=== PATIENT | male | born 1965 | race Caucasian/White ===

== ENCOUNTER 2016-05-17 22:54 | Emergency (ER) | payer MEDICAID ==
[~2016-05-17] VITALS: Ht 180.3 cm; Wt 105.0 kg
[~2016-05-17 22:54] MED LIST: HYDR-3533 PO; NAPR500 PO
[2016-05-17 23:02] VITALS: BP 178/110; PULSE 83; RESP 16; TEMP 98; O2SAT 96
[2016-05-17 23:30] VITALS: BP_SYST 178; BP_SYST 203; BP_DIAS 110; BP_DIAS 118; PULSE 83; PULSE 91; RESP 16; RESP 18; O2SAT 96
[2016-05-17] MEDS ORDERED: traMADol HCL 50 MG TAB PO ONE (23:45)
[2016-05-17] MEDS ORDERED: PENICILLIN V POTASSIUM 500 MG TAB PO ONE (23:45)
[2016-05-17 23:54] VITALS: BP 222/114; PULSE 88; RESP 18; O2SAT 96
[2016-05-17] MEDS ORDERED: IBUP200C PO (23:58)
[2016-05-18] MEDS ORDERED: cloNIDine HCL 0.1 MG TAB PO ONE ×2 (00:30→01:00)
[2016-05-18] MEDS ORDERED: PENI500T PO (00:38)
[2016-05-18] MEDS ORDERED: TRAM50TA PO (00:38)
[2016-05-18] MEDS ORDERED: CLON0.1T PO (00:38)
[2016-05-18] MEDS ORDERED: AMLO5 PO (00:38)
--- NOTE | 2016-05-18 00:38 | PD ---
HPI Chief Complaint: Oral / Dental Pain or Problem Time Seen by Provider: 23:39 Travel History International Travel<30 days: No Contact w/Intl Traveler<30days: No Traveled to known affect area: No History of Present Illness HPI 50-year-old male presents to the emergency department for complaint of dental pain. Patient's had fractured tooth with partially exposed dentin after filling broke. Patient states that his pain is no longer responding to over-the -counter Orajel or ibuprofen. Patient has had no fever chills. Patient is not diabetic. Patient does have prior history of dyslipidemia and hypertension. Patient is noted to be hypertensive. Patient rates pain as severe. Patient's had no headache sudden onset worst of her headache thunderclap headache visual disturbance speech disturbance change in mentation neck pain chest pain palpitations referred neck jaw back shoulder arm pain shortness of breath sweats nausea vomiting upper or lower extremity numbness tingling or weakness or ataxia gait. Patient has been on blood pressure medication the past but has not taken the medication recently has not had insurance or primary care provider and therefore has not been on any medications for blood pressure control. Patient denies other concerns or complaints. Patient is a nonsmoker. [facility] Past Medical History Narrative Medical Hypertension dyslipidemia; no tobacco use; nursing notes reviewed Cardiovascular Problems: Yes (HTN) Patient Takes Glucophage: No Hypertension: Yes Tetanus Vaccination: < 5 Years Social History Alcohol Use: No Tobacco Use: No Substance Use: No Allergies-Medications (Allergen,Severity, Reaction): Coded Allergies: No Known Allergies (Unverified , 05/17/16) Reported Meds & Prescriptions Reported Meds & Active Scripts Active Tramadol (Tramadol HCl) 50 Mg Tab 50 Mg PO Q6H PRN Penicillin V Potassium 500 Mg Tab 500 Mg PO Q6H 7 Days Norvasc (Amlodipine Besylate) 5 Mg Tab 5 Mg PO DAILY Clonidine (Clonidine HCl) 0.1 Mg Tab 0.1 Mg PO Q12HR PRN Reported Ibuprofen 200 Mg Cap 200 Mg PO Q4H PRN Review of Systems Except as stated in HPI: all other systems reviewed are Neg General / Constitutional: No: Fever, Chills Eyes: No: Visual changes HENT: Positive: Dental Difficulties, No: Headaches, Neck Stiffness, Neck Pain Cardiovascular: No: Chest Pain or Discomfort, Palpitations, Diaphoresis, Syncope Respiratory: No: Shortness of Breath Gastrointestinal: No: Nausea, Vomiting Genitourinary: No: Flank Pain Musculoskeletal: No: Pain Skin: No Rash Neurologic: No: Weakness, Dizziness, Syncope, Focal Abnormalities, Coordination Problem, Ataxia, Headache, Change in Mentation, Slurred Speech, Paresthesia, Incontinence, Seizures, Sensory Disturbance Psychiatric: No: Anxiety Endocrine: No: Heat Intolerance Hematologic/Lymphatic: No: Easy Bruising Physical Exam Narrative GENERAL: Well-developed well-nourished male in no acute distress no respiratory distress; hypertensive SKIN: Warm and dry. HEAD: Normocephalic. EYES: No scleral icterus. No injection or drainage. ENT: Mucous membranes moist airway is patent multiple dental caries with amalgam in place and the #30 tooth with broken amalgam NECK: Supple, trachea midline. No JVD or lymphadenopathy. CARDIOVASCULAR: Regular rate and rhythm without murmurs, gallops, or rubs. RESPIRATORY: Breath sounds equal bilaterally. No accessory muscle use. GASTROINTESTINAL: Abdomen soft, non-tender, nondistended. MUSCULOSKELETAL: No cyanosis, or edema. BACK: Nontender without obvious deformity. No CVA tenderness. Data Data Last Documented VS Vital Signs Date Time Temp Pulse Resp B/P Pulse Ox O2 Delivery O2 Flow Rate FiO2 05/18/16 02:12 95 05/18/16 01:42 90 16 188/105 Room Air 05/17/16 23:02 98.0 Orders Penicillin V Potassium (Veetids) (05/17/16 23:45) Tramadol (Ultram) (05/17/16 23:45) Clonidine (Catapres) (05/18/16 00:30) Clonidine (Catapres) (05/18/16 01:00) [facility] Medical Decision Making Medical Screen Exam Complete: Yes Emergency Medical Condition: Yes Medical Record Reviewed: Yes Differential Diagnosis Dentalgia, dental abscess, uncontrolled hypertension Narrative Course Patient with multiple blood pressures checked and administered tramadol for dental pain along with first dose of oral antibiotic; due to ongoing hypertension clonidine 0.1 mg administered--patient reports he has been on this medication the past without adverse reaction Patient encouraged along with spouse at bedside to make appointment with primary care provider and to start management of blood pressure with antihypertensive therapy. Patient provided prescription for clonidine to be taken on a as-needed basis as well as Norvasc 5 mg to be taken daily. Patient also given prescription for penicillin and tramadol and encouraged to follow up closely with dentist as patient will need possible crown versus extraction of the #30 tooth. Patient is aware of need for close management of his blood pressure. Additional BP medication administered At 1:49 AM blood pressure is 182/105 and have discussed with patient recommendation to more thoroughly address and manage his blood pressure. Discussed with patient starting IV and giving him IV antihypertensive medication ; patient reports he is ready to leave and doesn't want to stay longer for BP medications --discussed with patient risk for stroke heart attack and -- patient refuses further management ---will sign AMA AMA: The risks of leaving against medical advice without further evaluation treatment were discussed with the patient. These risks include cardiac dysfunction, cardiac dysrhythmia, possible heart attack, possible stroke or . The patient indicated understanding of these risks and appeared to have the capacity to make this decision. Diagnosis Primary Impression: Dentalgia Additional Impressions: Hypertension Qualified Code: I10 - Essential hypertension Poorly controlled blood pressure Left against medical advice Referrals: Dentist call for appointment Primary Care Physician call for appointment Patient Instructions: General Instructions Additional Instructions: AMA Med/Other Pt SpecificInfo: Prescription(s) given Scripts Tramadol 50 Mg Tab50 Mg PO Q6H PRN (PAIN) #12 TAB Ref 0 Prov:Romina Muhammad MD 05/18/16 Penicillin V Potassium 500 Mg Zyg000 Mg PO Q6H 7 Days Ref 0 Prov:Romina Muhammad MD 05/18/16 Amlodipine (Norvasc)5 Mg Tab5 Mg PO DAILY #30 TAB Ref 0 Prov:Romina Muhammad MD 05/18/16 Clonidine 0.1 Mg Tab0.1 Mg PO Q12HR PRN (SBP>180, DBP>95) #7 TAB Ref 0 Prov:Romina Muhammad MD 05/18/16 Disposition: 07 AGAINST MEDICAL ADVICE Condition: Stable Romina Muhammad MD May 18, 2016 00:38
[2016-05-18 00:59] VITALS: BP 219/122; PULSE 85; RESP 16; O2SAT 99
[2016-05-18 01:39] VITALS: BP 182/105; PULSE 84; RESP 16; O2SAT 95
[2016-05-18 01:42] VITALS: BP 188/105; PULSE 90; RESP 16; O2SAT 99
== END 2016-05-18 02:15 | disposition left against medical advice (07) ==
LOC: PHED 22:54
DX: K08.89 Other specified disorders of teeth and supporting structures (principal); I10 Essential (primary) hypertension; E78.5 Hyperlipidemia, unspecified; Z53.29 Procedure and treatment not carried out because of patient's decision for other reasons
CPT/HCPCS: 99282

== ENCOUNTER 2017-01-25 13:11 | Emergency (ER) | payer MEDICAID ==
[~2017-01-25] VITALS: Ht 180.3 cm; Wt 113.0 kg
[~2017-01-25 13:11] MED LIST changes: +AMLO5 PO; +CLON0.1T PO; -HYDR-3533 PO; +IBUP200C PO; -NAPR500 PO; +PENI500T PO; +TRAM50TA PO
[2017-01-25 13:55] VITALS: BP 180/88; PULSE 106; RESP 18; TEMP 98.2; O2SAT 95
[2017-01-25] MEDS ORDERED: AMOX500C PO (14:20)
[2017-01-25] MEDS ORDERED: CLINDAMYCIN 600 MG/DEX PREMIX 50 ML IV ONE (15:00)
[2017-01-25] MEDS ORDERED: KETOROLAC TROMETHAMINE 30 MG/ML (IVP) VIAL IV PUSH ONE (15:00)
[2017-01-25 15:15] LABS: AUTOMATED NEUTROPHIL # 7.1 TH/MM3 (1.8-7.7); BASOPHIL # 0.1 TH/MM3 (0-0.2); BASOPHIL % 1.1 % (0.0-2.0); EOSINOPHIL # 0.1 TH/MM3 (0-0.4); EOSINOPHIL % 0.8 % (0.0-4.0); HEMATOCRIT 43.6 % (39.0-51.0); HEMOGLOBIN 13.8 GM/DL (13.0-17.0); LYMPHOCYTE # 1.6 TH/MM3 (1.0-4.8); MEAN CELL VOLUME 90.7 FL (80.0-100.0); MEAN CORPUSCULAR HEMOGLOBIN 28.8 PG (27.0-34.0); MEAN CORPUSCULAR HGB CONC 31.7 % (32.0-36.0); MEAN PLATELET VOLUME 7.2 FL (7.0-11.0); MONO % 9.4 % (0.0-8.0); MONOCYTE # 0.9 TH/MM3 (0-0.9); NEUT % 72.7 % (16.0-70.0); PLATELET COUNT 343 TH/MM3 (150-450); RED BLOOD COUNT 4.81 MIL/MM3 (4.50-5.90); RED CELL DISTRIBUTION WIDTH 12.3 % (11.6-17.2); WHITE BLOOD COUNT 9.8 TH/MM3 (4.0-11.0)
--- NOTE | 2017-01-25 15:18 | PD ---
HPI Chief Complaint: Oral / Dental Pain or Problem Time Seen by Provider: 14:40 Travel History International Travel<30 days: No Contact w/Intl Traveler<30days: No Traveled to known affect area: No History of Present Illness HPI 51yo M with no significant PMH presents to the ED with c/o right jaw pain and swelling today. Said he had a dental abscess and saw his dentist 2 days ago and was placed on amoxicillin. He was told to come to the ED because his pain worsened and now have swelling in right jaw. Pt felt warm and had some nausea. Denies any drooling, chest pain, sob, vomiting, abdominal pain, focal weakness or numbness. PFSH Past Medical History Cardiovascular Problems: Yes (HTN) Diminished Hearing: No Hypertension: Yes Influenza Vaccination: No Past Surgical History Abdominal Aneurysm Repair: Yes (HERNIA REPAIR AGE 17) Social History Alcohol Use: No Tobacco Use: No Substance Use: No Allergies-Medications (Allergen,Severity, Reaction): Coded Allergies: No Known Allergies (Unverified Adverse Reaction, Unknown, 01/25/17) Reported Meds & Prescriptions Reported Meds & Active Scripts Active Clindamycin (Clindamycin HCl) 150 Mg Cap 300 Mg PO Q6H 7 Days Norvasc (Amlodipine Besylate) 5 Mg Tab 5 Mg PO DAILY Reported Amoxicillin 500 Mg Cap 500 Mg PO Q8HR Ibuprofen 200 Mg Cap 200 Mg PO Q4H PRN Review of Systems Except as stated in HPI: all other systems reviewed are Neg Physical Exam Narrative GENERAL: 51yo M in moderate distress. SKIN: Focused skin assessment warm/dry. HEAD: Atraumatic. Normocephalic. EYES: Pupils equal and round. No scleral icterus. No injection or drainage. ENT: Throat: Uvula midline. No elevation of tongue. MOUTH: Tooth #32 ttp. +Parapical ttp gingiva of tooth 32 and 31. No trismus. No malocclusion. NECK: Trachea midline. No JVD. CARDIOVASCULAR: Regular rate and rhythm. No murmur appreciated. RESPIRATORY: No accessory muscle use. Clear to auscultation. Breath sounds equal bilaterally. GASTROINTESTINAL: Abdomen soft, non-tender, nondistended. Hepatic and splenic margins not palpable. MUSCULOSKELETAL: No obvious deformities. No clubbing. No cyanosis. No edema. NEUROLOGICAL: Awake and alert. No obvious cranial nerve deficits. Motor grossly within normal limits. Normal speech. PSYCHIATRIC: Appropriate mood and affect; insight and judgment normal. Data Data Last Documented VS Vital Signs Date Time Temp Pulse Resp B/P (MAP) Pulse Ox O2 Delivery O2 Flow Rate FiO2 01/25/17 13:55 98.2 106 18 180/88 (118) 95 Orders Orders Complete Blood Count With Diff (01/25/17 14:55) Basic Metabolic Panel (Bmp) (01/25/17 14:55) Clindamycin 600 Mg/Dex Premix (Cleocin 6 (01/25/17 15:00) Ketorolac Inj (Toradol Inj) (01/25/17 15:00) Ct Soft Tiss Neck W Iv Cont (01/25/17 ) Iohexol 350 Inj (Omnipaque 350 Inj) (01/25/17 15:19) Oxycodone-Acetamin 5-325 Mg (Percocet (01/25/17 16:45) Labs Laboratory Tests Test 01/25/17 15:06 White Blood Count 9.8 TH/MM3 Red Blood Count 4.81 MIL/MM3 Hemoglobin 13.8 GM/DL Hematocrit 43.6 % Mean Corpuscular Volume 90.7 FL Mean Corpuscular Hemoglobin 28.8 PG Mean Corpuscular Hemoglobin Concent 31.7 % Red Cell Distribution Width 12.3 % Platelet Count 343 TH/MM3 Mean Platelet Volume 7.2 FL Neutrophils (%) (Auto) 72.7 % Lymphocytes (%) (Auto) 16.0 % Monocytes (%) (Auto) 9.4 % Eosinophils (%) (Auto) 0.8 % Basophils (%) (Auto) 1.1 % Neutrophils # (Auto) 7.1 TH/MM3 Lymphocytes # (Auto) 1.6 TH/MM3 Monocytes # (Auto) 0.9 TH/MM3 Eosinophils # (Auto) 0.1 TH/MM3 Basophils # (Auto) 0.1 TH/MM3 CBC Comment DIFF FINAL Differential Comment Blood Urea Nitrogen 14 MG/DL Creatinine 0.92 MG/DL Random Glucose 87 MG/DL Calcium Level 8.5 MG/DL Sodium Level 137 MEQ/L Potassium Level 3.8 MEQ/L Chloride Level 100 MEQ/L Carbon Dioxide Level 29.9 MEQ/L Anion Gap 7 MEQ/L Estimat Glomerular Filtration Rate 87 ML/MIN MDM Medical Decision Making Medical Screen Exam Complete: Yes Emergency Medical Condition: Yes Differential Diagnosis Dental abscess vs. submental abscess vs. periapical abscess vs. dental pain Narrative Course 51yo M with right lower molar tooth pain here because he started having right lower jaw pain and swelling. Pt was on amoxicillin for 2 days. He is nontoxic appearing. Labs reviewed, no leukocytosis. BMP unremarkable. CT soft tissue neck showed nonspecific soft tissue edema seem in subcutaneous soft tissue along lower right mandible. No loculated fluid collections are seen to suggest a focal abscess. Pt given toradol for pain and a dose of IV clindamycin. Pt still with pain after toradol so 1 percocet given which helped. Return precautions given. Diagnosis Primary Impression: Pain, dental Patient Instructions: General Instructions Departure Forms: Tests/Procedures Additional Instructions: Please follow up with your dentist in 1-2 days. Return to the ED if symptoms worsen. Med/Other Pt SpecificInfo: Prescription(s) given Scripts Hydrocodone-Acetaminophen (Hydrocodone-Acetaminophen) 5-325 mg Tab 1 TAB PO Q6H Y for PAIN, #7 TAB 0 Refills Prov: Jojo Ayers DO 01/25/17 Clindamycin (Clindamycin) 150 Mg Cap 300 MG PO Q6H for Infection for 7 Days, #56 CAP 0 Refills Prov: Jojo Ayers DO 01/25/17 Disposition: 01 DISCHARGE HOME Condition: Stable Jojo Ayers DO Jan 25, 2017 15:18
[2017-01-25] MEDS ORDERED: IOHEXOL 350 MG/ML 10 ML VIAL (for RAD DIAG) IVCONTRAST ONE (15:19)
[2017-01-25 15:24] LABS: CALCIUM 8.5 MG/DL (8.5-10.1)
[2017-01-25 15:25] LABS: BICARBONATE 29.9 MEQ/L (21.0-32.0)
[2017-01-25 15:28] LABS: CREATININE 0.92 MG/DL (0.60-1.30)
--- NOTE | 2017-01-25 15:33 | RADRPT ---
EXAM DATE/TIME: 01/25/2017 15:07 [facility] COMPARISON: No previous studies available for comparison. INDICATIONS : Right mandible pain and swelling. Evaluate for abscess. IV CONTRAST: 75 cc Omnipaque 350 (iohexol) IV RADIATION DOSE: 15.37 CTDIvol (mGy) MEDICAL HISTORY : Hypertension. SURGICAL HISTORY : Abdominal aortic aneurysm repair. ENCOUNTER: Initial ACUITY: 4 - 6 days PAIN SCALE: 10/10 LOCATION: Right facial TECHNIQUE: Volumetric scanning of the neck was performed. Using automated exposure control and adjustment of th e mA and/or kV according to patient size, radiation dose was kept as low as reasonably achievable to obtain optimal diagnostic quality images. DICOM format image data is available electronically for r eview and comparison. FINDINGS: NASOPHARYNX: The nasopharyngeal airway has a normal configuration. No mucosal thickening or mass is seen. OROPHARYNX: The intrinsic muscles of the tongue are symmetric. The tonsillar pillars are intact. The prevertebr al soft tissues are not thickened. LARYNX: The supraglottic, glottic, and infraglottic structures are intact. PARAPHARYNGEAL: The parapharyngeal space is intact. SALIVARY GLANDS: The parotid and submandibular glands are intact. LYMPH NODES: No enlarged or necrotic-appearing nodes. A few nonspecific mildly prominent nodes are noted adjacent to the right submandibular gland. THYROID: Homogeneous enhancement without evidence of nodule. BONES: Intact. There is nonspecific edema in the subcutaneous soft tissues adjacent to the right lower mandible. No loculated or fluid collections are seen. CONCLUSION: 1. Nonspecific soft tissue edema seen in the subcutaneous soft tissues along the lower right mandible . No loculated fluid collections are seen to suggest a focal abscess. 2. A few mildly prominent nonspecific lymph nodes are seen in the location of the soft tissue swellin g most likely reactive. Jose Juan Fairbanks MD on January 25, 2017 at 15:29 Board Certified Radiologist. This report was verified electronically.
[2017-01-25] MEDS ORDERED: oxyCODONE/ACETAMINOPHEN 5 MG/325 MG TAB PO ONE (16:45)
[2017-01-25] MEDS ORDERED: CLIN150C14 PO (16:51)
[2017-01-25] MEDS ORDERED: HYDR-3516 PO (17:02)
== END 2017-01-25 17:44 | disposition home or self-care (01) ==
LOC: PHED 13:11
DX: K08.89 Other specified disorders of teeth and supporting structures (principal)
CPT/HCPCS: 70491; 80048; 85025; 96365; 96375; 99285; J1885; Q9967